=== PATIENT | male | born 1960 | race Caucasian/White ===

== ENCOUNTER 2017-07-05 03:50 | Emergency (ER) | payer SELFPAY ==
[2017-07-05] MEDS ORDERED: methylPREDNISolone Sodium Succinate 125 MG/2 ML SDV IM ONE (04:02)
[2017-07-05] MEDS ORDERED: Albuterol/Ipratropium 3.0-0.5 MG/3 ML Neb Soln NEB ONE (04:02)
[2017-07-05] MEDS ORDERED: Sodium Chloride 0.9% 10 ML Syringe FLUSH PRN (04:07)
[2017-07-05] MEDS ORDERED: methylPREDNISolone Sodium Succinate 125 MG/2 ML SDV IVPUSH ONE (04:07)
[2017-07-05] MEDS ORDERED: Codeine/Promethazine 10-6.25 MG/5 ML Syrup 5 ML UD Cup PO ONE (04:08)
[2017-07-05 04:46] VITALS: BP 160/106
[2017-07-05] MEDS ORDERED: Levalbuterol HCl 1.25 MG/0.5 ML Neb NEB ONE (04:46)
[2017-07-05 04:52] LABS: CHLORIDE,CL 107 mmol/L (98-107); SODIUM,NA 143 mmol/L (136-145)
--- NOTE | 2017-07-05 05:39 | EDM.PDOC ---
ED HPI GENERAL MEDICAL PROBLEM - General Chief Complaint: Respiratory Problem Stated Complaint: SOB, difficulty breathing Time Seen by Provider: 07/05/17 04:01 Source of Information: Reports: Patient History Limitations: Reports: No Limitations - History of Present Illness INITIAL COMMENTS - FREE TEXT/NARRATIVE: Patient presents with complaints of sudden shortness of breath and wheezing. He reports it started around 0400. He has been seen for this previously. Does have a history of reactive airway disease, but does not currently take any medications on a daily basis for control of this. He is a smoker. Onset: Today, Sudden Duration: Getting Worse Location: Reports: Chest Severity: Severe Associated Symptoms: Reports: No Other Symptoms Treatments MECHANICAL TECH: Reports: Other (see below) Other Treatments MECHANICAL TECH: Inhaler, frequently - Related Data Allergies Allergy/AdvReac Type Severity Reaction Status Date / Time SEASONAL Allergy Sneezing Uncoded 07/02/17 06:28 Home Meds: Home Meds Tamsulosin HCl [Flomax] 1 tab PO DAILY 5 Days #5 cap.er.24h 06/14/17 [Rx] Albuterol Sulfate [Proair Hfa] 2 puff INH ASDIRECTED PRN 07/02/17 [History] Past Medical History Respiratory History: Reports: Asthma, COPD Genitourinary History: Reports: Prostate Disorder, Retention, Urinary Psychiatric History: Reports: Other (See Below) Other Psychiatric History: HX OF ALCOHOL ABUSE - Past Surgical History Other Musculoskeletal Surgeries/Procedures:: ANKLE FX Social & Family History - Tobacco Use Smoking Status *Q: Former Smoker Used Tobacco, but Quit: Yes Month Tobacco Last Used: may ED ROS GENERAL - Review of Systems Review Of Systems: See Below Constitutional: Reports: No Symptoms HEENT: Reports: No Symptoms Respiratory: Reports: Shortness of Breath, Wheezing Cardiovascular: Reports: No Symptoms Endocrine: Reports: No Symptoms GI/Abdominal: Reports: No Symptoms : Reports: No Symptoms Musculoskeletal: Reports: No Symptoms Skin: Reports: No Symptoms Neurological: Reports: No Symptoms Psychiatric: Reports: No Symptoms Hematologic/Lymphatic: Reports: No Symptoms Immunologic: Reports: No Symptoms ED EXAM, GENERAL - Physical Exam Exam: See Below Exam Limited By: Respiratory Distress General Appearance: Alert, WD/WN, Moderate Distress Throat/Mouth: Normal Inspection, Normal Lips, Normal Teeth, Normal Gums, Normal Oropharynx, Normal Voice, No Airway Compromise Head: Atraumatic, Normocephalic Neck: Normal Inspection, Supple, Non-Tender, Full Range of Motion Respiratory/Chest: Decreased Breath Sounds, Wheezing Cardiovascular: Normal Peripheral Pulses, Regular Rate, Rhythm, No Edema, No Gallop, No JVD, No Murmur, No Rub Peripheral Pulses: 2+: Posterior Tibial (L), Posterior Tibial (R), Dorsalis Pedis (L), Dorsalis Pedis (R) GI/Abdominal: Normal Bowel Sounds, Soft, Non-Tender, No Organomegaly, No Distention, No Abnormal Bruit, No Mass Back Exam: Normal Inspection, Full Range of Motion, NT Extremities: Normal Inspection, Normal Range of Motion, Non-Tender, Normal Capillary Refill, No Pedal Edema Neurological: Alert, Oriented, CN II-XII Intact, Normal Cognition, Normal Gait, Normal Reflexes, No Motor/Sensory Deficits Psychiatric: Normal Affect, Normal Mood Skin Exam: Warm, Dry, Intact, Normal Color, No Rash Lymphatic: No Adenopathy Course - Vital Signs Last Recorded V/S: Last Vital Signs Temp 35.7 C 07/05/17 03:50 Pulse 90 07/05/17 05:30 Resp 20 07/05/17 05:30 BP 160/106 H 07/05/17 03:50 Pulse Ox 95 07/05/17 05:30 - Orders/Labs/Meds Labs: Laboratory Tests 07/05/17 07/05/17 Range/Units 04:15 04:15 WBC 10.3 H (4.0-10.0) x10^3/uL RBC 4.81 (4.5-6.0) x10^6/uL Hgb 14.6 (14.0-18.0) g/dL Hct 42.7 (40.0-52.0) % MCV 88.8 (78.0-93.0) fL MCH 30.4 (26.0-32.0) pg MCHC 34.2 (32.0-36.0) g/dL RDW Coeff of Alfonso 12.3 (10.0-15.0) % Plt Count 205 (130-400) x10^3/uL Neut % (Auto) 48.3 L (50.0-80.0) % Lymph % (Auto) 37.2 (25.0-50.0) % [place] % (Auto) 6.8 (2.0-11.0) % Eos % (Auto) 7.1 H (0.0-4.0) % Baso % (Auto) 0.6 (0.2-1.2) % Sodium 143 (136-145) mmol/L Potassium 4.2 (3.5-5.1) mmol/L Chloride 107 (98-107) mmol/L Carbon Dioxide 25 (21-32) mmol/L BUN 24 H (7-18) mg/dL Creatinine 0.9 (0.70-1.30) mg/dL Est Cr Clr Drug Dosing 100.55 mL/min Estimated GFR (MDRD) > 60 Glucose 103 (74-106) mg/dL Calcium 8.1 L (8.5-10.1) mg/dL Corrected Calcium 8.26 L (8.5-10.1) mg/dL Total Bilirubin 0.2 (0.2-1.0) mg/dL AST 37 (15-37) U/L ALT 75 H (16-63) U/L Alkaline Phosphatase 100 (46-116) U/L Total Protein 7.0 (6.4-8.2) g/dL Albumin 3.8 (3.4-5.0) g/dL Globulin 3.2 Albumin/Globulin Ratio 1.19 Meds: Medications Discontinued Medications Generic Name Dose Route Start Last Admin Trade Name Freq PRN Reason Stop Dose Admin Albuterol/Ipratropium 3 ml 07/05/17 04:02 07/05/17 03:50 Duoneb 3.0-0.5 Mg/3 Ml NEB 07/05/17 04:03 3 ml ONETIME ONE Administration Levalbuterol HCl 1.25 mg 07/05/17 04:46 07/05/17 04:52 Xopenex NEB 07/05/17 04:47 1.25 mg ONETIME ONE Administration Methylprednisolone Sodium Succinate 125 mg 07/05/17 04:02 Solu-Medrol IM 07/05/17 04:03 ONETIME ONE Methylprednisolone Sodium Succinate 125 mg 07/05/17 04:07 07/05/17 04:20 Solu-Medrol IVPUSH 07/05/17 04:08 125 mg ONETIME ONE Administration Promethazine HCl/Codeine 5 ml 07/05/17 04:08 12/28/17 04:23 Phenergan With Codeine PO 07/05/17 04:09 5 ml ONETIME ONE Administration Sodium Chloride 10 ml 07/05/17 04:07 Saline Flush FLUSH ASDIRECTED PRN Keep Vein Open Departure - Departure Time of Disposition: 05:38 Disposition: Home, Self-Care 01 Condition: Good Clinical Impression: Acute asthma - Discharge Information Instructions: Asthma, Adult, Shortness of Breath, [id number] Referrals: PCP,Unobtain [Primary Care Provider] - Forms: ED Department Discharge Additional Instructions: Drink plenty of water to stay hydrated. Take the medrol dose pack as directed. This will reduce the inflammation in your lungs. Take your home inhalers as needed. Follow up with your primary doctor as needed for symptom management. You can call us at any time with any questions or concerns. - Problem List & Annotations (1) Wheezing SNOMED Code(s): 69297807 Code(s): R06.2 - WHEEZING Status: Acute Priority: Low (2) Acute asthma SNOMED Code(s): 857276801 Code(s): J45.909 - UNSPECIFIED ASTHMA, UNCOMPLICATED Status: Acute Priority: Low - Problem List Review Problem List Initiated/Reviewed/Updated: Yes - Assessment/Plan Assessment:: acute asthma exacerbation Plan: Drink plenty of water to stay hydrated. Take the medrol dose pack as directed. This will reduce the inflammation in your lungs. Take your home inhalers as needed. Follow up with your primary doctor as needed for symptom management. You can call us at any time with any questions or concerns.
== END 2017-07-05 05:50 | disposition home or self-care (01) ==
LOC: VM.ED 03:50
DX: J45.901 Unspecified asthma with (acute) exacerbation (principal); J44.9 Chronic obstructive pulmonary disease, unspecified; Z87.891 Personal history of nicotine dependence; Z79.899 Other long term (current) drug therapy; Z91.048 Other nonmedicinal substance allergy status
CPT/HCPCS: 71020; 80053; 85025; 87804; 94640; 96374; 99285; A9270; J2930; 99284-GF

== ENCOUNTER 2017-09-11 04:10 | Emergency (ER) | payer SELFPAY ==
[2017-09-11] MEDS ORDERED: Albuterol 0.083% 2.5 MG/3 ML Neb Soln NEB ONE ×2 (04:20→04:49)
[2017-09-11] MEDS ORDERED: methylPREDNISolone Sodium Succinate 125 MG/2 ML SDV IM ONE (04:21)
[2017-09-11] MEDS ORDERED: Albuterol/Ipratropium 3.0-0.5 MG/3 ML Neb Soln NEB ONE (04:37)
[2017-09-11] MEDS ORDERED: methylPREDNISolone Sodium Succinate 125 MG/2 ML SDV IV ONE (04:44)
[2017-09-11] MEDS ORDERED: Sodium Chloride 0.9% 10 ML Syringe FLUSH PRN (04:44)
[2017-09-11 05:12] VITALS: BP 160/100
--- NOTE | 2017-09-11 05:49 | EDM.PDOC ---
ED HPI GENERAL MEDICAL PROBLEM - General Chief Complaint: Respiratory Problem Stated Complaint: Shortness of breath Time Seen by Provider: 09/11/17 04:16 Source of Information: Reports: Patient History Limitations: Reports: No Limitations - History of Present Illness INITIAL COMMENTS - FREE TEXT/NARRATIVE: Pt. presents to ER with complaints of dyspnea. Pt. has a history of respiratory disease-likely underlying COPD due to history of smoking, but also possibly some reactive airway, due to frequent issues with dust and allergen induced bronchospasm. Pt. states that he was at the [employer] [employer] today and states that the environment was extremely vibha. Pt. subsequently used his inhaler approx. 120-150 times in 2 days. He denies any fever or chills. Denies any cough, but states that his lungs are tight. He denies any nausea, vomiting, or diarrhea. No weakness. Onset: Today Onset Date: 09/10/17 Location: Reports: Chest - Related Data Allergies Allergy/AdvReac Type Severity Reaction Status Date / Time SEASONAL Allergy Sneezing Uncoded 09/11/17 04:43 Home Meds: Home Meds Tamsulosin HCl [Flomax] 1 tab PO DAILY 5 Days #5 cap.er.24h 06/14/17 [Rx] Albuterol Sulfate [Proair Hfa] 2 puff INH ASDIRECTED PRN 07/02/17 [History] Past Medical History Respiratory History: Reports: Asthma, COPD Genitourinary History: Reports: Prostate Disorder, Retention, Urinary Psychiatric History: Reports: Other (See Below) Other Psychiatric History: HX OF ALCOHOL ABUSE - Past Surgical History Other Musculoskeletal Surgeries/Procedures:: ANKLE FX Social & Family History - Tobacco Use Smoking Status *Q: Former Smoker Used Tobacco, but Quit: Yes Month Tobacco Last Used: may ED ROS GENERAL - Review of Systems Review Of Systems: See Below Constitutional: Reports: No Symptoms HEENT: Reports: No Symptoms Respiratory: Reports: Shortness of Breath, Wheezing Cardiovascular: Reports: No Symptoms Endocrine: Reports: No Symptoms GI/Abdominal: Reports: No Symptoms : Reports: No Symptoms Musculoskeletal: Reports: No Symptoms Skin: Reports: No Symptoms Neurological: Reports: No Symptoms Psychiatric: Reports: No Symptoms Hematologic/Lymphatic: Reports: No Symptoms Immunologic: Reports: No Symptoms ED EXAM, GENERAL - Physical Exam Exam: See Below Exam Limited By: No Limitations General Appearance: Alert, WD/WN, No Apparent Distress Throat/Mouth: Normal Inspection, Normal Lips, Normal Teeth, Normal Gums, Normal Oropharynx, Normal Voice, No Airway Compromise Head: Atraumatic, Normocephalic Neck: Normal Inspection, Supple, Non-Tender, Full Range of Motion Respiratory/Chest: No Respiratory Distress, No Accessory Muscle Use, Decreased Breath Sounds, Wheezing Cardiovascular: Normal Peripheral Pulses, Regular Rate, Rhythm, No Edema, No Gallop, No JVD, No Murmur, No Rub GI/Abdominal: Normal Bowel Sounds, Soft, Non-Tender, No Organomegaly, No Distention, No Abnormal Bruit, No Mass Back Exam: Normal Inspection, Full Range of Motion, NT Extremities: Normal Inspection, Normal Range of Motion, Non-Tender, Normal Capillary Refill, No Pedal Edema Neurological: Alert, Oriented, CN II-XII Intact, Normal Cognition, Normal Gait, Normal Reflexes, No Motor/Sensory Deficits Skin Exam: Warm, Dry, Intact, Normal Color, No Rash Course - Vital Signs Last Recorded V/S: Last Vital Signs Temp 36.4 C 09/11/17 04:12 Pulse 85 09/11/17 05:04 Resp 16 09/11/17 05:04 BP 160/100 H 09/11/17 05:04 Pulse Ox 98 09/11/17 05:04 - Orders/Labs/Meds Orders: Active Orders 24 hr Category Date Time Status RT Aerosol Therapy [RC] ASDIRECTED Care 09/11/17 04:20 Active RT Aerosol Therapy [RC] ASDIRECTED Care 09/11/17 04:37 Ordered RT Aerosol Therapy [RC] ASDIRECTED Care 09/11/17 04:50 Ordered Chest 2V [CR] Stat Exams 09/11/17 04:36 Ordered Sodium Chloride 0.9% [Saline Flush] Med 09/11/17 04:44 Active 10 ml FLUSH ASDIRECTED PRN Peripheral IV Insertion Adult [OM.PC] Routine Oth 09/11/17 04:44 Ordered Medication Orders Sodium Chloride (Saline Flush) 10 ml FLUSH ASDIRECTED PRN PRN Reason: Keep Vein Open Meds: Medications Generic Name Dose Route Start Last Admin Trade Name Freq PRN Reason Stop Dose Admin Sodium Chloride 10 ml 09/11/17 04:44 Saline Flush FLUSH ASDIRECTED PRN Keep Vein Open Discontinued Medications Generic Name Dose Route Start Last Admin Trade Name Freq PRN Reason Stop Dose Admin Albuterol 2.5 mg 09/11/17 04:20 09/11/17 04:30 Proventil Neb Soln NEB 09/11/17 04:21 2.5 mg ONETIME ONE Administration Albuterol 2.5 mg 09/11/17 04:49 09/11/17 04:50 Proventil Neb Soln NEB 09/11/17 04:50 2.5 mg ONETIME ONE Administration Albuterol/Ipratropium 3 ml 09/11/17 04:37 09/11/17 04:12 Duoneb 3.0-0.5 Mg/3 Ml NEB 09/11/17 04:38 3 ml ONETIME ONE Administration Methylprednisolone Sodium Succinate 125 mg 09/11/17 04:21 Solu-Medrol IM 09/11/17 04:22 ONETIME ONE Methylprednisolone Sodium Succinate 125 mg 09/11/17 04:44 09/11/17 04:52 Solu-Medrol IV 09/11/17 04:45 125 mg ONETIME ONE Administration - Radiology Interpretation Free Text/Narrative:: chest x-ray is negative Departure - Departure Time of Disposition: 05:28 Disposition: Home, Self-Care 01 Clinical Impression: COPD exacerbation - Discharge Information Instructions: Chronic Obstructive Pulmonary Disease Exacerbation Forms: ED Department Discharge Additional Instructions: Prednisone 60mg once daily for 6 days. Albuterol inhaler 2 puffs every 4-6 hours as needed for shortness of breath. Follow-up in clinic for recheck in 7-10 days. - My Orders Last 24 Hours: My Active Orders 09/11/17 04:20 RT Aerosol Therapy [RC] ASDIRECTED 09/11/17 04:36 Chest 2V [CR] Stat 09/11/17 04:37 RT Aerosol Therapy [RC] ASDIRECTED 09/11/17 04:44 Sodium Chloride 0.9% [Saline Flush] 10 ml FLUSH ASDIRECTED PRN Peripheral IV Insertion Adult [OM.PC] Routine 09/11/17 04:50 RT Aerosol Therapy [RC] ASDIRECTED - Assessment/Plan Last 24 Hours: My Active Orders 09/11/17 04:20 RT Aerosol Therapy [RC] ASDIRECTED 09/11/17 04:36 Chest 2V [CR] Stat 09/11/17 04:37 RT Aerosol Therapy [RC] ASDIRECTED 09/11/17 04:44 Sodium Chloride 0.9% [Saline Flush] 10 ml FLUSH ASDIRECTED PRN Peripheral IV Insertion Adult [OM.PC] Routine 09/11/17 04:50 RT Aerosol Therapy [RC] ASDIRECTED
== END 2017-09-11 05:28 | disposition home or self-care (01) ==
LOC: VM.ED 04:10
DX: J44.1 Chronic obstructive pulmonary disease with (acute) exacerbation (principal); Z91.09 Other allergy status, other than to drugs and biological substances; Z79.899 Other long term (current) drug therapy; Z87.891 Personal history of nicotine dependence
CPT/HCPCS: 71046; 94640; 96374; 99285; J2930; J7620; 99283-GF

== ENCOUNTER 2017-11-02 17:44 | Emergency (ER) | payer SELFPAY ==
[2017-11-02 17:52] VITALS: BP 167/100
[2017-11-02] MEDS ORDERED: Albuterol/Ipratropium 3.0-0.5 MG/3 ML Neb Soln NEB ONE (17:52)
[2017-11-02] MEDS ORDERED: Sodium Chloride 0.9% 10 ML Syringe FLUSH PRN (17:52)
[2017-11-02] MEDS ORDERED: methylPREDNISolone Sodium Succinate 125 MG/2 ML SDV IVPUSH ONE (17:52)
--- NOTE | 2017-11-02 18:25 | EDM.PDOC ---
ED HPI GENERAL MEDICAL PROBLEM - General Chief Complaint: Respiratory Problem Stated Complaint: shortness of breath Time Seen by Provider: 11/02/17 17:51 Source of Information: Reports: Patient History Limitations: Reports: No Limitations - History of Present Illness INITIAL COMMENTS - FREE TEXT/NARRATIVE: Patient presents this evening with complaints of shortness of breath that has gotten significantly worse today. He does struggle with chronic COPD and is supposed to be taking inhalers but he can't afford them. He also indicates he's been diagnosed with asthma as well. He does have a rescue albuterol inhaler that he's been taking all day today. He is a former smoker and quit smoking about 6 months ago. He's complaining today that ever since he quit smoking all he's been sick. He denies having any recent illnesses. He currently denies headache, chest pain, abdominal pain, nausea or vomiting, no blood in his urine or stool. He also states he did have some prostate issues a few months back and was given Flomax and he was able to then urinate. He no longer takes this medication. He denies taking any oral medications or having any allergies at this time. He does show work of breathing upon presentation. Onset: Gradual Duration: Getting Worse Severity: Moderate Worsens with: Reports: Movement Associated Symptoms: Reports: Shortness of Breath - Related Data Allergies Allergy/AdvReac Type Severity Reaction Status Date / Time SEASONAL Allergy Sneezing Uncoded 09/11/17 04:43 Home Meds: Home Meds Albuterol [Proair HFA] 2 inh PO Q4H PRN 11/02/17 [History] Past Medical History Respiratory History: Reports: Asthma, COPD Genitourinary History: Reports: Prostate Disorder, Retention, Urinary Psychiatric History: Reports: Other (See Below) Other Psychiatric History: HX OF ALCOHOL ABUSE - Past Surgical History Other Musculoskeletal Surgeries/Procedures:: ANKLE FX Social & Family History - Tobacco Use Smoking Status *Q: Former Smoker Used Tobacco, but Quit: Yes Month/Year Tobacco Last Used: may ED ROS GENERAL - Review of Systems Review Of Systems: See Below Constitutional: Reports: No Symptoms HEENT: Reports: No Symptoms Respiratory: Reports: Shortness of Breath Cardiovascular: Reports: No Symptoms Endocrine: Reports: No Symptoms GI/Abdominal: Reports: No Symptoms : Reports: No Symptoms Musculoskeletal: Reports: No Symptoms Skin: Reports: No Symptoms Neurological: Reports: No Symptoms Psychiatric: Reports: No Symptoms Hematologic/Lymphatic: Reports: No Symptoms Immunologic: Reports: No Symptoms ED EXAM, GENERAL - Physical Exam Exam: See Below Exam Limited By: No Limitations General Appearance: Alert, WD/WN, Mild Distress Eye Exam: Bilateral Eye: EOMI, PERRL Ears: Normal TMs Neck: Normal Inspection, Supple, Non-Tender, Full Range of Motion Respiratory/Chest: Wheezing, Accessory Muscle Use, Prolonged Expiration Cardiovascular: Normal Peripheral Pulses, Regular Rate, Rhythm, No Edema, No Gallop, No JVD, No Murmur, No Rub Peripheral Pulses: 2+: Posterior Tibial (L), Posterior Tibial (R), Dorsalis Pedis (L), Dorsalis Pedis (R) GI/Abdominal: Normal Bowel Sounds, Soft, Non-Tender, No Organomegaly, No Distention, No Abnormal Bruit, No Mass Back Exam: Normal Inspection, Full Range of Motion, NT Extremities: Normal Inspection, Normal Range of Motion, Non-Tender, Normal Capillary Refill, No Pedal Edema Neurological: Alert, Oriented, CN II-XII Intact, Normal Cognition, Normal Gait, Normal Reflexes, No Motor/Sensory Deficits Psychiatric: Normal Affect, Normal Mood Skin Exam: Warm, Dry, Intact, Normal Color, No Rash Lymphatic: No Adenopathy Departure - Departure Time of Disposition: 19:01 Disposition: Home, Self-Care 01 Condition: Good Clinical Impression: COPD exacerbation - Discharge Information Instructions: Chronic Obstructive Pulmonary Disease, [id number] Additional Instructions: Make sure to take the albuterol inhaler only every 4 hours as needed See Reyna next week for a new prescription for a daily inhaler for your COPD Take the medrol dose pack in the AM with food Please call us with any questions or concerns or return if you have additional difficulties breathing - Problem List & Annotations (1) COPD exacerbation SNOMED Code(s): 204125992 Code(s): J44.1 - CHRONIC OBSTRUCTIVE PULMONARY DISEASE W (ACUTE) EXACERBATION Status: Acute Priority: Medium Current Visit: Yes - Problem List Review Problem List Initiated/Reviewed/Updated: Yes - Assessment/Plan Assessment:: COPD exacerbation Plan: Make sure to take the albuterol inhaler only every 4 hours as needed See Reyna next week for a new prescription for a daily inhaler for your COPD Take the medrol dose pack in the AM with food Please call us with any questions or concerns or return if you have additional difficulties breathing
[2017-11-02 18:38] LABS: CHLORIDE,CL 104 mmol/L (98-107); SODIUM,NA 140 mmol/L (136-145)
[2017-11-02] MEDS ORDERED: predniSONE 20 MG Tab PO ONE (19:09)
== END 2017-11-02 19:25 | disposition home or self-care (01) ==
LOC: VM.ED 17:44
DX: J44.1 Chronic obstructive pulmonary disease with (acute) exacerbation (principal); Z87.891 Personal history of nicotine dependence
CPT/HCPCS: 36600; 71046; 80053; 82803; 83880; 84484; 85025; 85379; 85610; 93005; 94640; 96374; 99285; A9270; J2930

== ENCOUNTER 2020-03-24 20:35 | Emergency (ER) | payer SELFPAY ==
[2020-03-24] MEDS ORDERED: Albuterol/Ipratropium 3.0-0.5 MG/3 ML Neb Soln ONE (20:46)
[2020-03-24] MEDS ORDERED: Albuterol/Ipratropium 3.0-0.5 MG/3 ML Neb Soln NEB ONE (20:57)
[2020-03-24] MEDS ORDERED: Dexamethasone 4 MG/ML 5 ML MDV PO ONE (21:05)
--- NOTE | 2020-03-24 21:12 | EDM.PDOC ---
ED HPI GENERAL MEDICAL PROBLEM - General Chief Complaint: Respiratory Problem Stated Complaint: SOB Time Seen by Provider: 03/24/20 20:41 Source of Information: Reports: Patient - History of Present Illness INITIAL COMMENTS - FREE TEXT/NARRATIVE: Kendell is a 59 y/o male who has hx of COPD/Emphysema and comes here tonight with increased SOB. He has his albuterol inhaler and has been using it, but over the course of the last few hours he has gotten more SOB and coughing a bit. He reports trying to get sputum up, but he cannot. He feels like the sputum is thicker, but cannot get it up to see any color. No fevers. He ran out of AirDuo Respiclick inhlaer and has not gotten it refilled yet. No fever. He lives 5 blocks from here and actually walked here, but he had to stop several times due to the shortness of breath. He reports that he has been regularly wearing a mask if he is out in public and the only person he has been with at home is his GF/Ex- who is a nurse in [place]. He is usually seen at the [facility]. - Related Data Allergies Allergy/AdvReac Type Severity Reaction Status Date / Time SEASONAL Allergy Sneezing Uncoded 03/24/20 20:43 Home Meds: Home Meds Albuterol [Proair HFA] 2 inh PO Q4H PRN 11/02/17 [History] Albuterol Sulfate 0.63 mg IH Q4HR PRN 30 Days #180 ml 03/24/20 [Rx] Albuterol [Proventil Neb Soln] 2.5 mg INH Q4H PRN 03/24/20 [History] Azithromycin 250 mg PO DAILY #4 tablet 03/24/20 [Rx] Fluticasone Propion/Salmeterol [Airduo Respiclick 113-14 Mcg] 1 each IH BID 03/24/20 [History] Loratadine [Claritin] 10 mg PO DAILY PRN 03/24/20 [History] methylPREDNISolone [Medrol] 4 mg PO ASDIRECTED #21 dospk 03/24/20 [Rx] Past Medical History Respiratory History: Reports: Asthma, COPD, SOB Genitourinary History: Reports: Prostate Disorder, Retention, Urinary Psychiatric History: Reports: Other (See Below) Other Psychiatric History: HX OF ALCOHOL ABUSE - Past Surgical History Other Musculoskeletal Surgeries/Procedures:: ANKLE FX Social & Family History - Tobacco Use Smoking Status *Q: Former Smoker Used Tobacco, but Quit: Yes Month/Year Tobacco Last Used: May/2017 ED ROS GENERAL - Review of Systems Review Of Systems: See Below Constitutional: Reports: No Symptoms HEENT: Reports: No Symptoms Respiratory: Reports: Shortness of Breath, Wheezing, Cough, Sputum (Unable to cough up) Cardiovascular: Reports: No Symptoms Endocrine: Reports: No Symptoms GI/Abdominal: Reports: No Symptoms : Reports: No Symptoms Musculoskeletal: Reports: No Symptoms Skin: Reports: No Symptoms Neurological: Reports: No Symptoms Psychiatric: Reports: No Symptoms Hematologic/Lymphatic: Reports: No Symptoms Immunologic: Reports: No Symptoms ED EXAM, GENERAL - Physical Exam Exam: See Below General Appearance: Alert, WD/WN, No Apparent Distress (Adult male, able to answer questions in 2-3 sentences) Ears: Normal External Exam, Normal Canal, Hearing Grossly Normal Nose: Normal Inspection, Normal Mucosa Throat/Mouth: Normal Teeth, Normal Voice, No Airway Compromise, Inflammation (pharyngeal region) Head: Atraumatic, Normocephalic Neck: Normal Inspection, Supple Respiratory/Chest: Wheezing, Prolonged Expiration, Other (coarseness) Cardiovascular: Normal Peripheral Pulses, Regular Rate, Rhythm, No Murmur GI/Abdominal: Normal Bowel Sounds, Soft, Non-Tender (Male) Exam: Deferred Rectal (Males) Exam: Deferred Back Exam: Normal Inspection Extremities: Normal Inspection, Normal Range of Motion, No Pedal Edema, Normal Capillary Refill Neurological: Alert, Oriented, CN II-XII Intact, Normal Cognition, Normal Gait, No Motor/Sensory Deficits Psychiatric: Normal Affect, Normal Mood Skin Exam: Warm, Dry, Intact, Normal Color Lymphatic: No Adenopathy Course - Vital Signs Text/Narrative:: 2040 The patient was seen seen by the LEASING ASSOCIATE. Duoneb was in progress on assessment. Lungs were quite coarse with wheezing throughout. Labs and CXR ordered. 2114 COVID test negative. He was given a second Duoneb and Dexamethasone 10mg po. 2149 Still somewhat winded and wheezing, Budesonide 0.5mg neb and then Albuterol neb repeated. Labs and CXR neg. Will plan to send home with Azithromycin, Medrol Dose Pack, and Albuterol nebs when a breathing easier. 2220 Breathing easier. Lungs still coarse, but less wheezing and moving air better. Feels ready to go home. Patient was given discharge instructions and left he ER in stable condition. Last Recorded V/S: Last Vital Signs Temp 36.3 C 03/24/20 20:35 Pulse 107 H 03/24/20 21:23 Resp 20 03/24/20 21:45 BP 175/117 H 03/24/20 21:23 Pulse Ox 95 03/24/20 21:23 - Orders/Labs/Meds Orders: Active Orders 24 hr Category Date Time Status RT Aerosol Therapy [RC] ASDIRECTED Care 03/24/20 20:58 Active RT Aerosol Therapy [RC] ASDIRECTED Care 03/24/20 21:24 Active RT Aerosol Therapy [RC] ASDIRECTED Care 03/24/20 21:51 Active RT Aerosol Therapy [RC] ASDIRECTED Care 03/24/20 21:51 Active Chest 1V Frontal [CR] Stat Exams 03/24/20 20:52 Taken Labs: Laboratory Tests 03/24/20 03/24/20 03/24/20 Range/Units 21:01 21:18 21:18 WBC 9.6 (4.0-10.0) x10^3/uL RBC 5.43 (4.5-6.0) x10^6/uL Hgb 16.2 (14.0-18.0) g/dL Hct 46.2 (40.0-52.0) % MCV 85.1 (78.0-93.0) fL MCH 29.8 (26.0-32.0) pg MCHC 35.1 (32.0-36.0) g/dL RDW Coeff of Alfonso 12.5 (10.0-15.0) % Plt Count 260 (130-400) x10^3/uL Neut % (Auto) 62.0 (50.0-80.0) % Lymph % (Auto) 24.9 L (25.0-50.0) % Trinity % (Auto) 6.0 (2.0-11.0) % Eos % (Auto) 6.7 H (0.0-4.0) % Baso % (Auto) 0.4 (0.2-1.2) % Sodium 139 (136-145) mmol/L Potassium 3.8 (3.5-5.1) mmol/L Chloride 102 (98-107) mmol/L Carbon Dioxide 25 (21-32) mmol/L Anion Gap 15.8 (10-20) mmol/L BUN 17 (7-18) mg/dL Creatinine 0.9 (0.70-1.30) mg/dL Est Cr Clr Drug Dosing TNP Estimated GFR (MDRD) > 60 Glucose 100 (74-106) mg/dL Calcium 8.9 (8.5-10.1) mg/dL SARS CoV-2 RNA Rapid JEMIMA Negative (NEGATIVE) Meds: Medications Discontinued Medications Generic Name Dose Route Start Last Admin Trade Name Freq PRN Reason Stop Dose Admin Albuterol 2.5 mg 03/24/20 21:24 03/24/20 21:27 Proventil Neb Soln [facility] 03/24/20 21:25 2.5 mg ONETIME ONE Administration Albuterol 2.5 mg 03/24/20 21:51 03/24/20 22:10 Proventil Neb Soln [facility] 03/24/20 21:52 2.5 mg ONETIME ONE Administration Albuterol 2 packet 03/24/20 21:54 03/24/20 22:03 Take Home: Albuterol 0.083%, 4 Neb Pack [facility] 03/24/20 21:55 2 packet ONETIME ONE Administration Albuterol/Ipratropium Confirm 03/24/20 20:46 03/24/20 20:41 Duoneb 3.0-0.5 Mg/3 Ml Administered 03/24/20 20:47 3 ml Dose Administration 3 ml .ROUTE .STK-MED ONE Albuterol/Ipratropium 3 ml 03/24/20 20:57 03/24/20 21:03 Duoneb 3.0-0.5 Mg/3 Ml NEB 03/24/20 20:58 3 ml ONETIME ONE Administration Azithromycin 1 packet 03/24/20 21:54 03/24/20 22:03 Take Home: Azithromycin 250 Mg, 2 Tab Pack PO 03/24/20 21:55 1 packet ONETIME ONE Administration Budesonide 0.5 mg 03/24/20 21:50 03/24/20 22:00 Pulmicort NEB 03/24/20 21:51 0.5 mg ONETIME ONE Administration Dexamethasone 10 mg 03/24/20 21:05 03/24/20 21:19 Dexamethasone PO 03/24/20 21:06 10 mg ONETIME ONE Administration - Radiology Interpretation Free Text/Narrative:: XR CHest 1V=no acute findings (See final report) Departure - Departure Time of Disposition: 22:22 Disposition: Home, Self-Care 01 Condition: Good Clinical Impression: COPD with exacerbation - Discharge Information Prescriptions: Albuterol Sulfate 0.63 mg IH Q4HR PRN 30 Days #180 ml PRN Reason: Shortness Of Breath Azithromycin 250 mg PO DAILY #4 tablet methylPREDNISolone [Medrol] 4 mg PO ASDIRECTED #21 dospk Instructions: Chronic Obstructive Pulmonary Disease Exacerbation, Eating Plan for Chronic Obstructive Pulmonary Disease Referrals: Reyna Jolley PA-C [Primary Care Provider] - Forms: ED Department Discharge Sepsis Event Note (ED) - Evaluation Sepsis Screening Result: No Definite Risk - Focused Exam Vital Signs: Vital Signs Temp Pulse Resp BP Pulse Ox 03/24/20 21:45 20 03/24/20 21:23 107 H 20 175/117 H 95 03/24/20 20:35 36.3 C 120 H 24 H 207/138 H 92 L - My Orders Last 24 Hours: My Active Orders 03/24/20 20:52 Chest 1V Frontal [CR] Stat 03/24/20 20:58 RT Aerosol Therapy [RC] ASDIRECTED 03/24/20 21:24 RT Aerosol Therapy [RC] ASDIRECTED 03/24/20 21:51 RT Aerosol Therapy [RC] ASDIRECTED RT Aerosol Therapy [RC] ASDIRECTED - Assessment/Plan Last 24 Hours: My Active Orders 03/24/20 20:52 Chest 1V Frontal [CR] Stat 03/24/20 20:58 RT Aerosol Therapy [RC] ASDIRECTED 03/24/20 21:24 RT Aerosol Therapy [RC] ASDIRECTED 03/24/20 21:51 RT Aerosol Therapy [RC] ASDIRECTED RT Aerosol Therapy [RC] ASDIRECTED Assessment:: 1)COPD Exacerbation Plan: -Azithromycin 250mg 2 tablets-Take tonight the 2 tablets that you were given in the ER. -Azithromycin 250mg 1 tablets daily x 4 days #4(Rx) Pick this up tomorrow and start as directed. -Medrol DosePack 4mg oral as directed #21 (Rx). -Albuterol (2.5mg/3ml) every 4 hours as needed for cough/shortness of breath #8 units (ER) #180 (Rx) Use the starter pack sent home tonight from the ER and then cotton picker the rest tomorrow. -Stay well hydrated -Make an appt to see your PCP in 1 week for recheck -Resume your AirDuo Respiclick inhaler tomorrow, get it refilled. -Return to the ER if your symptoms become worse or are unmanageable at home.
[2020-03-24 21:24] VITALS: BP 175/117; PULSE 107
[2020-03-24] MEDS ORDERED: Albuterol 0.083% 2.5 MG/3 ML Neb Soln NEB ONE ×2 (21:24→21:51)
[2020-03-24 21:33] LABS: CHLORIDE,CL 102 mmol/L (98-107); SODIUM,NA 139 mmol/L (136-145)
[2020-03-24 21:36] LABS: ANION GAP 15.8 mmol/L (10-20)
[2020-03-24] MEDS ORDERED: Budesonide 0.5 MG/2 ML Neb Susp NEB ONE (21:50)
[2020-03-24] MEDS ORDERED: Take Home: Azithromycin 250 MG, 2 Tab Pack PO ONE (21:54)
[2020-03-24] MEDS ORDERED: Take Home: Albuterol 0.083% 2.5 MG/3 ML Neb Soln, 4 Neb Pack NEB ONE (21:54)
--- NOTE | 2020-03-25 07:53 | CR ---
[id number] RAD/RAD Chest PA or AP 1V EXAM: SINGLE VIEW CHEST. INDICATION: SHORTNESS OF BREATH COPD COMPARISON: CORRELATION IS MADE WITH NOVEMBER 02, 2017 FINDINGS: The lungs are clear but hyperaerated The cardiomediastinal contour is normal IMPRESSION: AIRWAY DISEASE NO PNEUMONIA Chris Galicia MD 03/25/20 0752 Thank you for allowing us to participate in the care of your patient.
== END 2020-03-24 22:37 | disposition home or self-care (01) ==
LOC: VM.ED 20:35
DX: J44.1 Chronic obstructive pulmonary disease with (acute) exacerbation (principal); Z20.828 Contact with and (suspected) exposure to other viral communicable diseases; Z91.048 Other nonmedicinal substance allergy status; Z79.899 Other long term (current) drug therapy; Z87.891 Personal history of nicotine dependence
CPT/HCPCS: 36415; 71045; 80048; 85025; 87635; 94640; 99284; 99285; A9270; J1100; J7613-GY; J7620-GY; U0002

== ENCOUNTER 2020-04-03 19:43 | Inpatient (IN) | payer SELFPAY ==
[2020-04-03] MEDS ORDERED: Sodium Chloride 0.9% 10 ML Syringe FLUSH PRN (19:45)
[2020-04-03] MEDS ORDERED: cefTRIAXone 1 GM, Lidocaine 1% 2.1 ML IM ONE ×2 (19:48)
--- NOTE | 2020-04-03 19:54 | EDM.PDOC ---
ED HPI GENERAL MEDICAL PROBLEM - General Chief Complaint: Respiratory Problem Stated Complaint: shortness of breath Time Seen by Provider: 04/03/20 19:43 Source of Information: Reports: Patient History Limitations: Reports: No Limitations - History of Present Illness INITIAL COMMENTS - FREE TEXT/NARRATIVE: Patient comes into the emergency department with complaints of shortness of breath. Patient states that he is been short of breath all week was seen in the emergency department earlier in the week and was provided 5 nebulizer treatment and sent home with nebulization prescription, steroids, and azithromycin. Patient did not follow-up in the clinic. He states he has been intermittently short of breath throughout the week. However over the course the last 30 minutes he became extremely short of breath and could not get any air and he felt. Patient was also tested for COVID and it was negative. Patient states that he has been self isolating anyways and does not have a fever, sore throat, chest pain, Dizziness, lightheadedness, abdominal pain, or peripheral edema. Patient denies any alleviating factors or any factors that make it worse. He states he is constantly short of breath the last 30 minutes. Onset: Gradual Location: Reports: Chest Quality: Reports: Other Severity: Severe Improves with: Reports: None Worsens with: Reports: None Associated Symptoms: Reports: No Other Symptoms - Related Data Allergies Allergy/AdvReac Type Severity Reaction Status Date / Time SEASONAL Allergy Sneezing Uncoded 04/03/20 20:03 Home Meds: Home Meds Albuterol [Proair HFA] 2 inh PO Q4H PRN 11/02/17 [History] Albuterol Sulfate 0.63 mg IH Q4HR PRN 30 Days #180 ml 03/24/20 [Rx] Albuterol [Proventil Neb Soln] 2.5 mg INH Q4H PRN 03/24/20 [History] Fluticasone Propion/Salmeterol [Airduo Respiclick 113-14 Mcg] 1 each IH BID 03/24/20 [History] Loratadine [Claritin] 10 mg PO DAILY PRN 03/24/20 [History] Past Medical History Respiratory History: Reports: Asthma, COPD, SOB Genitourinary History: Reports: Prostate Disorder, Retention, Urinary Psychiatric History: Reports: Other (See Below) Other Psychiatric History: HX OF ALCOHOL ABUSE - Past Surgical History Other Musculoskeletal Surgeries/Procedures:: ANKLE FX Social & Family History - Tobacco Use Smoking Status *Q: Former Smoker Used Tobacco, but Quit: Yes Month/Year Tobacco Last Used: 2017 ED ROS GENERAL - Review of Systems Review Of Systems: Comprehensive ROS is negative, except as noted in HPI. Constitutional: Denies: Fever, Chills, Malaise, Weakness, Night Sweats, Diaphoresis, Decreased Appetite Respiratory: Reports: Shortness of Breath, Wheezing, Cough, Sputum Cardiovascular: Reports: No Symptoms Endocrine: Reports: No Symptoms GI/Abdominal: Reports: No Symptoms : Reports: No Symptoms Musculoskeletal: Reports: No Symptoms Skin: Reports: No Symptoms Neurological: Reports: No Symptoms Psychiatric: Reports: No Symptoms Hematologic/Lymphatic: Reports: No Symptoms ED EXAM, GENERAL - Physical Exam Exam: See Below Exam Limited By: No Limitations General Appearance: Alert, WD/WN, No Apparent Distress Eye Exam: Bilateral Eye: EOMI, PERRL Ears: Normal External Exam, Normal Canal, Hearing Grossly Normal, Normal TMs Ear Exam: Bilateral Ear: Auricle Normal, Canal Normal, TM normal Nose: Normal Inspection, Normal Mucosa, No Blood Throat/Mouth: Normal Inspection, Normal Lips, Normal Teeth, Normal Gums, Normal Oropharynx, Normal Voice, No Airway Compromise Head: Atraumatic, Normocephalic Neck: Normal Inspection, Supple, Non-Tender, Full Range of Motion Respiratory/Chest: Wheezing, Stridor, Accessory Muscle Use, Retractions Cardiovascular: Normal Peripheral Pulses, No Edema, No Gallop, Tachycardia GI/Abdominal: Normal Bowel Sounds, Soft, Non-Tender, No Abnormal Bruit, No Mass Back Exam: Normal Inspection, Decreased Range of Motion Extremities: Normal Inspection, Normal Range of Motion, Non-Tender, No Pedal Ed catherine, Normal Capillary Refill Neurological: Alert, Oriented, CN II-XII Intact, Normal Gait Psychiatric: Normal Affect, Normal Mood Skin Exam: Warm, Dry, Intact, Normal Color Course - Vital Signs Last Recorded V/S: Last Vital Signs Temp 36.0 C L 04/03/20 19:44 Pulse 133 H 04/03/20 19:44 Resp 30 H 04/03/20 19:44 BP 199/136 H 04/03/20 19:44 Pulse Ox 92 L 04/03/20 19:44 - Orders/Labs/Meds Orders: Active Orders 24 hr Category Date Time Status RT Aerosol Therapy [RC] ASDIRECTED Care 04/03/20 20:05 Active RT Aerosol Therapy [RC] ASDIRECTED Care 04/03/20 20:05 Active RT Aerosol Therapy [RC] ASDIRECTED Care 04/03/20 20:06 Active Sodium Chloride 0.9% [Saline Flush] Med 04/03/20 19:45 Active 10 ml FLUSH ASDIRECTED PRN Peripheral IV Insertion Adult [OM.PC] Stat Oth 04/03/20 19:45 Ordered Medication Orders Sodium Chloride (Saline Flush) 10 ml FLUSH ASDIRECTED PRN PRN Reason: Keep Vein Open Last Admin: 04/03/20 20:01 Dose: 10 ml Documented by: NANETTE Labs: Laboratory Tests 04/03/20 04/03/20 Range/Units 19:54 19:54 WBC 10.7 H (4.0-10.0) x10^3/uL RBC 6.17 H (4.5-6.0) x10^6/uL Hgb 18.2 H D (14.0-18.0) g/dL Hct 51.6 (40.0-52.0) % MCV 83.6 (78.0-93.0) fL MCH 29.5 (26.0-32.0) pg MCHC 35.3 (32.0-36.0) g/dL RDW Coeff of Alfonso 12.4 (10.0-15.0) % Plt Count 315 (130-400) x10^3/uL Neut % (Auto) 58.7 (50.0-80.0) % Lymph % (Auto) 28.3 (25.0-50.0) % Placer % (Auto) 6.2 (2.0-11.0) % Eos % (Auto) 6.5 H (0.0-4.0) % Baso % (Auto) 0.3 (0.2-1.2) % Sodium 137 (136-145) mmol/L Potassium 4.5 (3.5-5.1) mmol/L Chloride 100 (98-107) mmol/L Carbon Dioxide 23 (21-32) mmol/L Anion Gap 18.5 (10-20) mmol/L BUN 23 H (7-18) mg/dL Creatinine 1.0 (0.70-1.30) mg/dL Est Cr Clr Drug Dosing TNP Estimated GFR (MDRD) > 60 Glucose 125 H (74-106) mg/dL Calcium 9.3 (8.5-10.1) mg/dL Corrected Calcium 9.14 (8.5-10.1) mg/dL Total Bilirubin 0.6 (0.2-1.0) mg/dL AST 25 (15-37) U/L ALT 32 (16-63) U/L Alkaline Phosphatase 114 (46-116) U/L NT-Pro-B Natriuret Pep 21 (<=125) pg/mL Total Protein 7.9 (6.4-8.2) g/dL Albumin 4.2 (3.4-5.0) g/dL Globulin 3.7 Albumin/Globulin Ratio 1.14 Meds: Medications Generic Name Dose Route Start Last Admin Trade Name Olvin PRN Reason Stop Dose Admin Sodium Chloride 10 ml 04/03/20 19:45 04/03/20 20:01 Saline Flush FLUSH 10 ml ASDIRECTED PRN Administration Keep Vein Open Discontinued Medications Generic Name Dose Route Start Last Admin Trade Name Olvin PRN Reason Stop Dose Admin Albuterol 2.5 mg 04/03/20 20:05 04/03/20 20:10 Proventil [facility] 04/03/20 20:06 2.5 mg ONETIME ONE Administration Albuterol 2.5 mg 04/03/20 20:05 04/03/20 19:55 Proventil [facility] 04/03/20 20:06 2.5 mg ONETIME ONE Administration Albuterol 2.5 mg 04/03/20 20:05 04/03/20 19:44 Proventil Neb [facility] 04/03/20 20:06 2.5 mg ONETIME ONE Administration Ceftriaxone Sodium 1 gm 04/03/20 20:02 04/03/20 20:04 Rocephin IVPUSH 04/03/20 20:03 1 gm ONETIME ONE Administration Ceftriaxone Sodium 1 gm/ 0 gm 04/03/20 19:48 Lidocaine HCl 2.1 ml IM 04/03/20 19:49 ONETIME ONE Methylprednisolone Sodium Succinate 125 mg 04/03/20 19:45 04/03/20 20:01 Solu-Medrol IVPUSH 04/03/20 19:46 125 mg ONETIME ONE Administration Departure - Departure Time of Disposition: 20:50 Disposition: Admitted As Inpatient 66 Condition: Fair Clinical Impression: COPD exacerbation, Respiratory distress - Discharge Information *PRESCRIPTION DRUG MONITORING PROGRAM REVIEWED*: Not Applicable *COPY OF PRESCRIPTION DRUG MONITORING REPORT IN PATIENT CATHERINE: Not Applicable Sepsis Event Note (ED) - Evaluation Sepsis Screening Result: No Definite Risk - Focused Exam Vital Signs: Vital Signs Temp Pulse Resp BP Pulse Ox 04/03/20 19:44 36.0 C L 133 H 30 H 199/136 H 92 L - My Orders Last 24 Hours: My Active Orders 04/03/20 19:45 Sodium Chloride 0.9% [Saline Flush] 10 ml FLUSH ASDIRECTED PRN Peripheral IV Insertion Adult [OM.PC] Stat 04/03/20 20:05 RT Aerosol Therapy [RC] ASDIRECTED RT Aerosol Therapy [RC] ASDIRECTED 04/03/20 20:06 RT Aerosol Therapy [RC] ASDIRECTED - Assessment/Plan Last 24 Hours: My Active Orders 04/03/20 19:45 Sodium Chloride 0.9% [Saline Flush] 10 ml FLUSH ASDIRECTED PRN Peripheral IV Insertion Adult [OM.PC] Stat 04/03/20 20:05 RT Aerosol Therapy [RC] ASDIRECTED RT Aerosol Therapy [RC] ASDIRECTED 04/03/20 20:06 RT Aerosol Therapy [RC] ASDIRECTED Assessment:: 1. respiratory distress 2. COPD exacerbation Plan: 1. Labs completed in the ER. Results reviewed with the patient 2. IV initiated in the emergency department 3. 3 albuterol nebs given in ER 4. Solu-Medrol 125mg IV given in ER 5. Rocephin 1gm IV given in ER 6. Chest xray completed. Results recommend CT without contrast due to 7mm opacity in left lower lung. results reveal no acute findings 7. Consult completed with Enoc Pro NP who is agreeable to acute care admit for further medical management of COPD exacerbation 8. Patient and family are agreeable to the above plan of care 9. All questions and concerns were addressed with the patient and family prior to admit
[2020-04-03] MEDS: methylPREDNISolone Sodium Succinate 125 MG/2 ML SDV IVPUSH ONE (20:01)
[2020-04-03] MEDS ORDERED: cefTRIAXone 1 GM Vial IVPUSH ONE (20:02)
[2020-04-03] MEDS ORDERED: Albuterol 0.083% 2.5 MG/3 ML Neb Soln NEB ONE ×3 (20:05)
--- NOTE | 2020-04-03 20:19 | CR ---
[id number] RAD/RAD Chest PA or AP 1V Exam: RAD Chest PA or AP 1V Indication:SOB Comparison: March 24, 2020. Discussion/Impression: 7 mm nodular opacity projects over the left lower lung. This was not definitely seen on the prior examinations. Etiology is nonspecific. Noncontrast chest CT is recommended for further evaluation. Negative for pneumonia, edema, effusion, or pneumothorax. Raul Marr MD 04/03/202018 Thank you for allowing us to participate in the care of your patient.
[2020-04-03 20:24] LABS: CHLORIDE,CL 100 mmol/L (98-107); SODIUM,NA 137 mmol/L (136-145)
[2020-04-03 20:27] LABS: ANION GAP 18.5 mmol/L (10-20)
[2020-04-03] MEDS ORDERED: Sodium Chloride 0.9% 1,000 ML IV SCH (21:45)
[2020-04-03] MEDS: Albuterol/Ipratropium 3.0-0.5 MG/3 ML Neb Soln NEB SCH (22:24)
[2020-04-03] MEDS ORDERED: cloNIDine 0.1 MG Tab PO ONE (23:07)
[2020-04-03] MEDS: Acetaminophen 325 MG Tab PO PRN (23:38)
[2020-04-04] MEDS: Albuterol/Ipratropium 3.0-0.5 MG/3 ML Neb Soln NEB SCH ×10 (00:16→23:05)
[2020-04-04] MEDS: methylPREDNISolone Sodium Succinate 125 MG/2 ML SDV IVPUSH SCH ×2 (03:41→09:53)
--- NOTE | 2020-04-04 07:01 | CT ---
[id number] CT/CT Chest WO IV EXAM: CT Chest WO IV CLINICAL DATA: Left lung nodule. COMPARISON: Radiograph from today. FINDINGS: LUNGS: Mild amount of peribronchial thickening in the bilateral lower lobes, some of which demonstrate filling defects suggesting retained secretions or aspiration. Scattered punctate solid noncalcified pulmonary nodules in both lungs measuring 2 mm or less (series 6 image 59 in the right upper lobe, series 6 image 109 in the left lower lobe and series 6 image 135 in the left lower lobe). No definite correlate for nodular opacity seen on radiograph today. However finding is likely secondary to nipple artifact. no pleural effusion or pneumothorax. HEART AND GREAT VESSELS: Unremarkable. MEDIASTINUM AND LYMPHATICS: No mediastinal or hilar lymphadenopathy. UPPER ABDOMINAL ORGANS: Unremarkable. BONES: Mild spondylosis. No fracture or osseous lesion. IMPRESSION: Mild granulomatous change in the lungs. Mild bilateral symmetric lower lobe predominant peribronchial thickening suggesting bronchitis/bronchiolitis with either retained secretions or aspiration described above. Nodular opacity seen on radiograph from today is most consistent with nipple artifact. Raul Marr MD 04/04/20 0700 Thank you for allowing us to participate in the care of your patient.
[2020-04-04] MEDS ORDERED: Albuterol/Ipratropium 3.0-0.5 MG/3 ML Neb Soln ONE (07:16)
[2020-04-04 08:03] LABS: CHLORIDE,CL 100 mmol/L (98-107); SODIUM,NA 134 mmol/L (136-145)
[2020-04-04 08:04] LABS: ANION GAP 18.4 mmol/L (10-20)
[2020-04-04] MEDS: methylPREDNISolone Sodium Succinate 125 MG/2 ML SDV IVPUSH ONE (09:35)
[2020-04-04] MEDS ORDERED: Sodium Chloride 0.9% 1,000 ML IV ONE (09:38)
[2020-04-04] MEDS ORDERED: Loratadine 10 MG Tab PO PRN (09:40)
[2020-04-04] MEDS: Fluticasone-Salmeterol 113-14 MCG Powder Inhalant INH SCH ×2 (10:04→19:19)
[2020-04-04] MEDS: Azithromycin 500 MG in Sodium Chloride 0.9% 250 ML IV SCH (10:06)
--- NOTE | 2020-04-04 10:57 | PN ---
Progress Note for RAMANDEEP BORDEN Date: 04/04/2020 Room #: VM.212 CHIEF COMPLAINT: Shortness of breath. HISTORY OF PRESENT ILLNESS: Hospital day #2 for a 59-year-old male patient, who was admitted yesterday to the acute care floor for COPD exacerbation. The patient had been seen in the emergency room at [facility] last week for his shortness of breath and was provided with nebulizer treatments and was sent home with a nebulizer prescription, steroids, and azithromycin. The patient apparently did not follow up in the clinic post ER visit. The patient's shortness of breath has progressively gotten worse over the past week. He presented to the emergency room last evening when he felt he could not get any air in. The patient was given 3 nebulizer treatments in the emergency room last night. He was also given 125 of IV Solu-Medrol. The patient was also given 1 g of Rocephin. The patient had been tested for COVID-19 earlier this week, which was negative. CXR showed nodules, otherwise negative. CT of Chest negative for any acute process, but possible aspiration vs secretions of both bases. REVIEW OF SYSTEMS: Constitutional: Negative. Respiratory: Complains of shortness of breath, audible wheezing, productive cough Cardiovascular: Negative. Skin: Negative. Neurological: Negative. Abdomen: Negative. PHYSICAL EXAMINATION: Vital Signs: Temperature 98.6, pulse is 117, blood pressure 133/92, respiratory rate 16, oxygen saturation 91% on 2 L. General: alert, no acute distress, cooperative Respiratory: Inspiratory and expiratory wheezing throughout all lung julien, scattered rhonchi, bibasilar. Cardiovascular: Tachycardic, regular rhythm, no murmurs. Abdomen: Soft, nontender. Bowel sounds are hypoactive x4. Skin: Intact, warm, and dry. Neurological: No focal neurological deficits. The patient is alert. The patient is cooperative. Sensation is intact. LABORATORY STUDIES: 1. CBC: White blood cell count 8.0, hemoglobin 16.6, hematocrit 47.6, platelets are 321,000. 2. CMP: Sodium 134, potassium 4.4, chloride 100, CO2 of 20, anion gap is 18.4, BUN is 23, creatinine 1.0, GFR greater than 60, glucose 154, calcium 8.98. AST is 23, ALT is 31, alkaline phosphatase 101. ASSESSMENT: 1. Acute chronic obstructive pulmonary disease exacerbation. 2. Shortness of breath. 3. Wheezing. 4. Hyponatremia. 5. Clinical dehydration. 6. Productive Cough PLAN: We will change Solu-Medrol to 40 mg IV daily. We will decrease nebulizers to every 4 hours. The patient will be given 1 L of normal saline today. We will discontinue Rocephin and switch to IV Zithromax per GOLD guidelines. Incentive Spirometry, C & DB, regular diet, DVT prophylaxis with early ambulation. Continue with all other orders the same. The patient is a code 1. The patient does wish to be transferred to a higher level of care should the need arise. Dr. Giselle Coffey will assume care of this patient tomorrow morning. TB: 04/04/2020 09:54:24 MODL: 04/04/2020 10:36:33 /[id number]
[2020-04-04] MEDS: Acetaminophen 325 MG Tab PO PRN ×2 (13:37→19:19)
[2020-04-04] MEDS: Calcium Carbonate 750 MG Tab.Chew PO PRN (21:53)
[2020-04-04] MEDS ORDERED: Ibuprofen 200 MG Tab PO ONE (22:14)
[2020-04-05] MEDS: Calcium Carbonate 750 MG Tab.Chew PO PRN ×2 (02:17→23:07)
[2020-04-05] MEDS: Albuterol/Ipratropium 3.0-0.5 MG/3 ML Neb Soln NEB SCH ×5 (03:02→19:51)
[2020-04-05] MEDS: Acetaminophen 325 MG Tab PO PRN ×3 (06:26→23:07)
[2020-04-05 07:01] LABS: CHLORIDE,CL 105 mmol/L (98-107); SODIUM,NA 139 mmol/L (136-145)
[2020-04-05] MEDS ORDERED: methylPREDNISolone Sodium Succinate 40 MG/1 ML SDV IVPUSH SCH (08:00)
[2020-04-05] MEDS ORDERED: Albuterol 0.083% 2.5 MG/3 ML Neb Soln NEB PRN (08:16)
[2020-04-05 08:38] LABS: PCO2 ARTERIAL,POC 37 mmHg (35-48)
[2020-04-05] MEDS: methylPREDNISolone Sodium Succinate 125 MG/2 ML SDV IVPUSH SCH ×2 (08:57→19:51)
[2020-04-05] MEDS: guaiFENesin 600 MG Tab.ER PO SCH ×2 (08:57→19:51)
[2020-04-05] MEDS: Cefuroxime 250 MG Tab PO SCH ×2 (08:57→19:51)
[2020-04-05] MEDS: Fluticasone-Salmeterol 113-14 MCG Powder Inhalant INH SCH ×2 (08:58→19:58)
[2020-04-05] MEDS: Azithromycin 500 MG in Sodium Chloride 0.9% 250 ML IV SCH (08:59)
--- NOTE | 2020-04-05 09:52 | PN ---
Progress Note for RAMANDEEP BORDEN Date: 04/05/2020 Room #: VM.212 SUBJECTIVE: This is the patient's 3rd hospital day, being admitted with shortness of breath, exacerbation of chronic obstructive pulmonary disease. He presented to the emergency room. His chest x-ray had no pneumonia shown. He did have a CT scan which showed bronchitis, bronchiectasis changes. He states he is starting to feel a little bit better. It is noted that he is still requiring oxygen as he will otherwise drop below 90%. He has been having a difficult time also with sleeping with mood. He does have panic attacks as well. He has not been into counseling for those at all. The patient had been noncompliant with some of his medications recently, so it is difficult to tell what he had truly been on or not. OBJECTIVE: Vital Signs: His temperature is 36.7, pulse 95, blood pressure is 134/90, saturations are 91% on 1 L, respiratory rate 16. His telemetry showed normal sinus rhythm at 95. SKIN: [place], warm, and dry. Pharynx is normal. No thrush noted in his mouth. NECK: No anterior cervical adenopathy. HEART: Regular rate and rhythm without murmurs or bruits. LUNGS: Reveal inspiratory wheezes [facility] up the chest. ABDOMEN: Soft. PSYCHIATRIC: Mood-lema, he does appear slightly anxious. LABORATORY DATA: Shows his white blood cell count is up to 18.8, which may be steroid effect. Hemoglobin has improved to 14.5, platelets 314, 83 segs, 10 lymphocytes. Sodium 129, potassium 4.0, creatinine is 0.9, BUN is 20, GFR greater than 60, glucose 108. IMPRESSION: 1. Exacerbation of chronic obstructive pulmonary disease. 2. Bronchitis. 3.hypoxemia 4. History of alcoholism. 5. History of hyponatremia. 6. Anxeity. PLAN: We will increase his IV steroid dose to help with lung function. We will resume cephalosporin to have cross coverage for dual antibiotic coverage Will add ceftin 250 mg one pill twice a day. We will start him on Remeron for sleep. We will offer CPT for chest function. We will place him on scheduled Mucinex to see if that will help with some mucolytic. The patient does have a consult in with [employer] to talk about finances for hospitalization. Hopefully, anticipate discharge home tomorrow with the patient. We will also do peak flow meter testing and check his ABGs today and check CRP tomorrow along with repeating CBC. . Will stop telemetry. GM04/05/2020 08:20:47 MODL: 04/05/2020 09:44:28 /[id number] MTDD
[2020-04-05] MEDS ORDERED: Ibuprofen 200 MG Tab PO PRN (18:27)
[2020-04-05] MEDS ORDERED: Mirtazapine 15 MG Tab PO SCH (20:00)
[2020-04-06] MEDS: Albuterol/Ipratropium 3.0-0.5 MG/3 ML Neb Soln NEB SCH ×2 (07:07→10:53)
[2020-04-06] MEDS: guaiFENesin 600 MG Tab.ER PO SCH (07:51)
[2020-04-06] MEDS: Cefuroxime 250 MG Tab PO SCH (07:51)
[2020-04-06] MEDS: Fluticasone-Salmeterol 113-14 MCG Powder Inhalant INH SCH (07:52)
[2020-04-06] MEDS: methylPREDNISolone Sodium Succinate 125 MG/2 ML SDV IVPUSH SCH (07:53)
[2020-04-06] MEDS: Acetaminophen 325 MG Tab PO PRN (07:55)
[2020-04-06] MEDS ORDERED: Azithromycin 250 MG Tab PO SCH (08:00)
--- NOTE | 2020-04-06 09:06 | PN ---
Progress Note for RAMANDEEP BORDEN Date: 04/06/2020 Room #: VM.212 SUBJECTIVE: The patient is feeling much better today. His appetite is improved. He was able to get weaned off oxygen and he was up ambulating well. He is producing a little bit of mucus with Mucinex as well as he was just given a flutter valve this morning to use. He does feel ready to go home. He comments about his job and how he has had much exposure to inhalants over many, many years; probably that has caused some lung damage. Apparently, his peak flow meter this morning, he said was 250. He does not know what his best is. He did sleep well last night after starting the Remeron. OBJECTIVE: Vital Signs: His temperature is 36.9, pulse 79, blood pressure is increased to 162/87, saturations are 93% on room air, respiratory rate is 16. General: He is much more comfortable today. He is able to get a deeper breath in. Skin: [place], warm, and dry. Heart: Regular rate and rhythm without murmurs or bruits. Lungs: Have rare inspiratory wheeze on left base. Abdomen: Soft. LABORATORY DATA: His white blood cell count is improved today, is 12.7; hemoglobin 14.5; platelets 271; 78 neutrophils; 15 lymphocytes. His sputum culture just showed strep viridans as well as some yeast present. However, he did not have thrush appearance to his mouth. IMPRESSION: 1. Exacerbation of chronic obstructive pulmonary disease. 2. Chronic bronchitis. 3. Acute bronchitis with bronchiectasis. 4. Hypoxemia, which is resolved. 5. Anxiety disorder. PLAN: The patient will be discharged home. He will be sent home on his DuoNebs. We will switch him from his IV Solu-Medrol to oral prednisone that will start tomorrow. His antibiotics will start tomorrow. He will follow up with Reyna Jolley in the clinic. He does not need home oxygen. GM04/06/2020 08:28:16 MODL: 04/06/2020 08:58:44 /[id number]
[2020-04-06 10:25] VITALS: BP 171/103; PULSE 90
--- NOTE | 2020-04-06 11:12 | DISCH ---
PRIMARY DIAGNOSES: 1. Exacerbation of chronic obstructive pulmonary disease. 2. Acute bronchitis. 3. Bronchiectasis. 4. Hypoxemia. 5. Severe shortness of breath. 6. Chronic anxiety disorder. 7. Elevated blood pressure may be related to steroid medications. SUMMARY OF ADMIT HISTORY AND PHYSICAL: The patient is a 59-year-old male who returned to the emergency room on 04/06/2020 after being treated as an outpatient a week previously for bronchitis, given some nebulizer treatment with steroids and Zithromax. The patient had not followed up to the clinic. He again became short of breath. He presented to the emergency room. He was noted on presentation to have blood pressure 199/136, pulse ox 92%, respiratory rate is 30, pulse was 133. Hemoglobin 18.2, white blood cell count 10.7 with glucose 128. LFTs were normal. He was given Proventil nebs, Rocephin, as well as shot of Solu-Medrol, and placed on acute care. PHYSICAL EXAMINATION: Lungs: On admission, had wheezing, stridor. Accessory muscles were being used with retraction. Extremities: No pedal edema. SUMMARY OF HOSPITAL COURSE: The patient was placed on supplemented oxygen. He had on chest x-ray, a 7 mm opacity of his left lung, so CT scan was done, which showed bronchiectasis with bronchitis. The patient's vital signs did improve with oxygen. His sats were up to 93%. His pulse did come down by the 27th down to the 120s. Blood pressure improved to 114/81. The patient did have a CT of his chest done as stated. Sputum culture showed strep viridans with some yeast present. On examining his mouth, he did not have any thrush that seemed to be present. His white blood cell count had peaked up to 18.8 by 04/05, so may have been steroid use. His hemoglobin had improved to 14.5 with hydration. He did have blood gases done on 04/05, which showed pH 7.43, pCO2 of 37, pO2 of 71, bicarb 24, and that was on 1 L of oxygen. His electrolytes by 04/05 showed a sodium 139, potassium 4.0, BUN was 20, creatinine 0.9, GFR greater than 60, glucose 108. CRP less than 0.2. To note, his SARS test had been negative on 04/04. The patient did not have any followup chest x-rays. To note, he commented that he was anxious, difficulty sleeping, and he would like to start something, and it was suggested he try Remeron. He did have it 1 night and it did work quite well. He was resumed on Ceftin oral after Zithromax was to be added again for combination coverage antibiotics and he did have Solu-Medrol resumed at a higher dose as he was still needing oxygen on 04/05. By 04/06, he was able to be weaned off oxygen and up walking and ambulating without desaturating. MEDICATIONS AT DISCHARGE: Will be albuterol HFA 2 puffs q.4 hours p.r.n., Claritin 10 mg 1 pill daily p.r.n., AirDuo 113/14, 1 puff b.i.d., albuterol nebs 2.5 inhalers q.4 hours p.r.n., cefuroxime 250 mg 1 pill twice a day for 4 days, DuoNeb 3 mL 4 times a day, guaifenesin 600 mg 1 pill twice a day. Prednisone taper will be starting on 04/07 of 40 mg a day for 3 days and 20 mg a day for 3 days, 10 mg a day for 3 days, 5 mg a day for 3 days, and then stop. Mirtazapine 15 mg 1 pill at bedtime, Zithromax, he will take 500 mg daily for 3 more days. ACTIVITY: As tolerated. FOLLOWUP: He will follow up with ANDREA Martinez, in the clinic in a week's time. The patient's code level status is 1 at the time of discharge. To note, he commented his peak flow meter was 250. It is unclear as to what his baseline is. He was also sent home with a flutter valve, which he should use 4 times a day for mucus. GM04/06/2020 08:35:19 MODL: 04/06/2020 11:02:55 /[id number] Copies, MORENITA Martinez [facility]
[2020-04-06] MEDS: Calcium Carbonate 750 MG Tab.Chew PO PRN (12:25)
[2020-04-07] MEDS ORDERED: predniSONE 20 MG Tab PO SCH (08:00)
== END 2020-04-06 13:20 | disposition home or self-care (01) | DRG 191 ==
LOC: VM.ED 19:43 → VM.MS 20:12
PROVIDERS: ADMIT Nurse Practitioner Family; ATTEND Family Medicine
DX: J44.1 Chronic obstructive pulmonary disease with (acute) exacerbation (principal); E87.1 Hypo-osmolality and hyponatremia; J44.0 Chronic obstructive pulmonary disease with (acute) lower respiratory infection; J20.9 Acute bronchitis, unspecified; J47.9 Bronchiectasis, uncomplicated; F41.8 Other specified anxiety disorders; R03.0 Elevated blood-pressure reading, without diagnosis of hypertension; T38.0X5A Adverse effect of glucocorticoids and synthetic analogues, initial encounter; Z79.52 Long term (current) use of systemic steroids; Z79.899 Other long term (current) drug therapy; E86.0 Dehydration; Z91.09 Other allergy status, other than to drugs and biological substances; R33.9 Retention of urine, unspecified; Z87.891 Personal history of nicotine dependence
CPT/HCPCS: 36415; 36600; 71045; 71250; 80048; 80053; 82803; 83735; 83880; 85007; 85025; 85027; 86140; 87070; 87205; 94640; 94667; 94760; 96374; 96375; 99284; 99285-25; A9270-GY; J0456; J0696; J2930; J7030; J7050; J7613-GY; J7620-GY; U0002

== ENCOUNTER 2020-09-16 12:58 | Emergency (ER) | payer SELFPAY ==
--- NOTE | 2020-09-16 14:43 | EDM.PDOC ---
ED HPI GENERAL MEDICAL PROBLEM - General Stated Complaint: ER VISIT Time Seen by Provider: 09/16/20 13:39 Source of Information: Reports: Patient - History of Present Illness INITIAL COMMENTS - FREE TEXT/NARRATIVE: Kendell is a 59 y/o male who presents to the ER reporting he has been unable to pee since yesterday AM. He is having alot of bladder spasms. Had this occur 2 years ago and needed a chirinos placed, but denies ever seeing Urology back then. - Related Data Allergies Allergy/AdvReac Type Severity Reaction Status Date / Time SEASONAL Allergy Sneezing Uncoded 04/03/20 20:03 Home Meds: Home Meds Albuterol [Proair HFA] 2 inh PO Q4H PRN 11/02/17 [History] Albuterol [Proventil Neb Soln] 2.5 mg INH Q4H PRN 03/24/20 [History] Fluticasone Propion/Salmeterol [Airduo Respiclick 113-14 Mcg] 1 each IH BID 03/24/20 [History] Loratadine [Claritin] 10 mg PO DAILY PRN 03/24/20 [History] Albuterol/Ipratropium [DuoNeb 3.0-0.5 MG/3 ML] 3 ml NEB QIDRT #120 neb 04/06/20 [Rx] Azithromycin [Zithromax] 500 mg PO DAILY 3 Days #3 tablet 04/06/20 [Rx] Cefuroxime [Ceftin] 250 mg PO BID 4 Days #8 tablet 04/06/20 [Rx] Mirtazapine [Remeron] 15 mg PO BEDTIME #30 tablet 04/06/20 [Rx] guaiFENesin [Mucinex] 600 mg PO BID tab.er 04/06/20 [Rx] predniSONE See Taper PO WITHBREAKFAST 12 Days #12 tablet 04/06/20 [Rx] Past Medical History Respiratory History: Reports: Asthma, COPD, SOB Genitourinary History: Reports: Prostate Disorder, Retention, Urinary Psychiatric History: Reports: Other (See Below) Other Psychiatric History: HX OF ALCOHOL ABUSE - Past Surgical History Other Musculoskeletal Surgeries/Procedures:: ANKLE FX Social & Family History - Caffeine Use Caffeine Use: Reports: Energy Drinks Review of Systems - Review of Systems Review Of Systems: See Below Constitutional: Reports: No Symptoms Eyes: Reports: No Symptoms Ears: Reports: No Symptoms Nose: Reports: No Symptoms Mouth/Throat: Reports: No Symptoms Respiratory: Reports: No Symptoms Cardiovascular: Reports: No Symptoms GI/Abdominal: Reports: Abdominal Pain Genitourinary: Reports: Dysuria Musculoskeletal: Reports: No Symptoms Skin: Reports: No Symptoms Neurological: Reports: No Symptoms Psychiatric: Reports: No Symptoms ED EXAM, GENERAL - Physical Exam Exam: See Below General Appearance: Alert, WD/WN, Other (Adult male, obviosuly in pain and cannot lay down for assessment.) Ears: Hearing Grossly Normal Head: Atraumatic, Normocephalic Respiratory/Chest: No Respiratory Distress Cardiovascular: Normal Peripheral Pulses, Regular Rate, Rhythm, No Murmur GI/Abdominal: Normal Bowel Sounds, Other (Bladder distended) (Male) Exam: Normal Inspection, Circumcised Rectal (Males) Exam: Deferred Back Exam: Normal Inspection Extremities: Normal Inspection, Normal Range of Motion, Normal Capillary Refill Neurological: Alert, Oriented, CN II-XII Intact, No Motor/Sensory Deficits Psychiatric: Normal Affect Skin Exam: Warm, Dry, Intact, Normal Color Course - Vital Signs Text/Narrative:: 1339 The patient was seen by the MANAGER BUSINESS PLANNING. RN attempted to place chirinos. Unable to pass catheter. MANAGER BUSINESS PLANNING then attempted 14 fr Caudette placement and unable. Final attempt with 12 Fr chirinos results in about 30 ml of bright red bleeding and then patient was able to get up to the bathroom. He did pee out some blood and then urinated into the toilet before able to measure. He reported relief. [address] [facility] contacted and case presented to Dr Galvan, Urology national sales manager. Dr Galvan advises sending the patient to the ER for further evaluation. Patient will drive to the ER POV. - Orders/Labs/Meds Orders: Active Orders 24 hr Category Date Time Status Insert Chirinos Catheter [Insert Urinary Catheter] [OM.PC] Care 09/16/20 14:00 Ordered Q24H Urinary Catheter Assessment [RC] ASDIRECTED Care 09/16/20 13:51 Active UA W/ARNEL RFLX IF INDICATED [URIN] Stat Lab 09/16/20 13:52 Ordered Departure - Departure Time of Disposition: 14:25 Disposition: DC/Tfer to Acute Hospital 02 Condition: Good Clinical Impression: Acute urinary retention - Discharge Information Referrals: Reyna Jolley PA-C [Primary Care Provider] - Forms: Interfacility Transfer JOHN Additional Instructions: -Transfer to [facility] ER to Dr Galvan - My Orders Last 24 Hours: My Active Orders 09/16/20 13:51 Urinary Catheter Assessment [RC] ASDIRECTED 09/16/20 13:52 UA W/ARNEL RFLX IF INDICATED [URIN] Stat 09/16/20 14:00 Insert Chirinos Catheter [Insert Urinary Catheter] [OM.PC] Q24H - Assessment/Plan Last 24 Hours: My Active Orders 09/16/20 13:51 Urinary Catheter Assessment [RC] ASDIRECTED 09/16/20 13:52 UA W/ARNEL RFLX IF INDICATED [URIN] Stat 09/16/20 14:00 Insert Chirinos Catheter [Insert Urinary Catheter] [OM.PC] Q24H
[2020-09-16] MEDS: Lidocaine 2% HCl 11 ML Jelly Filled Syringe MUCMEM ONE (15:08)
[2020-09-16 17:23] VITALS: BP 144/89; PULSE 72
[2020-09-16] MEDS: Acetaminophen 500 MG Tab PO ONE (17:24)
[2020-09-16] MEDS: Ondansetron 4 MG Tab.DIS PO ONE (17:24)
== END 2020-09-16 15:40 | disposition short-term general hospital (02) ==
LOC: VM.ED 12:58
DX: R33.9 Retention of urine, unspecified (principal); N42.9 Disorder of prostate, unspecified; J44.9 Chronic obstructive pulmonary disease, unspecified; Z79.899 Other long term (current) drug therapy; Z91.048 Other nonmedicinal substance allergy status
CPT/HCPCS: 51702; 99283; 99283-25; A9270-GY